=== PATIENT | male | born 1970 | race Caucasian/White ===

== ENCOUNTER → 2017-10-08 20:29 | Outpatient (CLI) | payer MEDICAID, SELFPAY | PROVIDERS: Family Provider Family Medicine; PCP Family Medicine; Visit Provider Family Medicine | DX: G47.33 Obstructive sleep apnea (adult) (pediatric) (principal) | CPT/HCPCS: 95810 ==

== ENCOUNTER → 2018-07-19 09:54 | Outpatient (CLI) | payer MEDICAID, SELFPAY ==
--- NOTE | 2018-07-19 09:55 | RAD_ITS ---
STUDY: X-RAY - LEFT KNEE REASON FOR EXAM: Male, 47 years old. Pain TECHNIQUE: 4 view(s) of the knee. COMPARISON: None. FINDINGS: There is no evidence of fracture or dislocation. There are no significant degenerative changes. There are no radiodense foreign bodies. RAD/Knee 4 or More Views IMPRESSION: Negative radiographs of the left knee. Electronically Signed: Javier Farah, at 17:01 EST Tel , Service support ,
--- OUTSIDE RECORDS SUMMARY | 2018-09-20 19:57 | XMS RPT_ITS ---
:1970 Author Organization OHIP Care Team Providers Name Role Phone NAVI PONCE Referring Unavailable TALITA COFFEY Attending Unavailable TYE JUAREZ (METAL FABRICATOR) Referring Unavailable NAVI PONCE Attending Unavailable NAVI PONCE Referring Unavailable Erickson Langford Attending Unavailable Navi Ponce Referring Unavailable Erickson Langford Attending Unavailable Erickson Langford Referring Unavailable Navi Ponce Primary Care Unavailable Navi Ponce Attending Unavailable Navi Ponce Primary Care Unavailable PROBLEMS PROBLEMS DATE TYPE CONDITION / CODE ATTENDING STATUS SOURCE 07/19/2018 Unknown M25.562 - Pain in Erickson Langford Active [facility] left knee / Community M25.562(ICD-10) Hospital Repository 04/10/2018 Active Encounter for NA Active [facility] immunization / [place] Z23(ICD-10) Repository 11/18/2017 Active Unknown / TALITA COFFEY Active [facility] UNK(Unknown) [place] Repository 10/08/2017 Unknown G47.33 - Abraham Ponce Obstructive sleep [facility] apnea (adult) Hospital (pediatric) / Repository G47.33(ICD-10) 09/22/2017 Active Encounter for NA Active [facility] general adult [facility] [place] medical Repository examination without abnormal findings / Z00.00(ICD-10) PROCEDURES PROCEDURES No Procedure Records FoundRESULTS RESULTS ORTHOPEDIC VISIT Observed: 07/19/2018 Status: F Source: [place] REPORT 11:30 AM [facility] [place] REPOSITORY [facility] [address] [place] [id number] OFFICE VISIT Date of Service: 07/19/18 MR#: [id number] Acct: [id number] Name: VICENTE YOUNG Rep #: [id number] : 1970 Provider: LIZA Langford Age/Sex: 47/M Location: [facility] [place].SMO Status: Signed Intake Intake Visit Reasons: LEFT KNEE Is patient in pain?: Yes Pain scale (1-10): 5 Allergies No Known Allergies Allergy (Verified 04/22/14 09:38) Medications Oxycodone HCl/Acetaminophen [Percocet 5/325] 1 - 2 tab PO Q4H PRN PRN #20 tab 04/22/14 [Rx] meloxicam 15 mg tablet 15 mg PO DAILY #30 tab 07/19/18 [Rx Confirmed 07/19/18] PFSH Social History Smoking Status: Never smoker HPI LEFT KNEE: Details: VICENTE YOUNG is a 47 year old M here today for left knee pain. He complains of constant aching with sharp pain in the lateral aspect of the knee, increased pain with extension. He also complains of locking and stuck sensation in flexed position. He gets some relief with nsaids but denies any icing. Dr Haji gave him a brace but he does not find it useful. Voltaren gel has been helpful but he continues to have an antalgic gait that is worsening. Dr Haji did a steroid injection that was very helpful. Denies numbness, tingling or other associated symptoms. Ortho Exam Left Knee Swelling: No Homans Sign: No Knee ROM: Yes ROM-Extension -20 to 0, Yes ROM-Flexion 0-140 Examination: Yes med jt line tenderness, Yes Lat jt line tenderness, No Flaca's Test, No Pain with flexion, No TTP inf pole patella, No Crepitus Quad Atrophy: No Stability: NML: Anterior Drawer, NML: Posterior Drawer, NML: Valgus 30, NML: Varus 30 Popliteal Adenopathy: No Patella Grind: No KNEE: Today in the office patient has no evident abnormalities on inspection of the knee. He has no localized or generalized swelling. He has no ecchymosis/bruising, erythema, or any other skin changes at this time. He has normal full range of motion comparable to the right knee as well as normal 5 out of 5 strength comparable to the right knee. As noted above he has some minor lateral and medial joint line tenderness at the same time no findings suggestive of meniscus damage with a negative Flaca's and a negative modified Apley's. Patient appears to have normal ACL, PCL, and collateral ligaments without any laxity or discomfort on maneuvers. Office Procedures Kenalog 40 mg/mL suspension for injection (triamcinolone acetonide) 80 mg Intra-Articular ONCE Injections Yes Knee Left Office Meds Kenalog Performing Provider: LIZA Mo Administered by: LIZA Mo on 07/19/18 10:51 Dose Route Admin Location Lot Number Expiration DateNDC Supervisor [employer] 80 mg Intra-Articularleft knee [id number] 08/28/19 8180-5007-78 [employer]QUIB[employer] Assessment AND Plan Plan Obtained Xrays of patient's left knee. Personally reviewed Xrays. There is no obvious fracture, dislocation, or lucency noted. There is some minor medial compartment narrowing noted. See chart for further details. Today in the office patient presents with left knee pain that he has had on and off for a few years now. Patient had a shot about 2 years ago and states that it worked for quite a period of time. He is definitely has had worsening pain in the past several months and should have come in sooner he states but is just now here. We did go over his x-rays showing mild medial compartment narrowing. He does not have any evidence on examination of major meniscus tears and did not have an acute injury to point to this either. At this time we discussed treatment options which include doing nothing, conservative care with ice and anti-inflammatories, injections, physical therapy, and/or further imaging with MRI. At this time patient states he has been able to work with some discomfort and would like to continue to do so. We discussed and I do not feel that at this time an MRI is warranted. I would deafly recommend that he begin a home exercise program to strengthen the quadriceps and hamstrings as well as the calf. Patient states that he will try to do some things to strengthen the legs. At this time he would like to have an injection into the knee for some pain relief. We discussed that if this does not last for long period of time then we will have him return and proceed with an MRI of the left knee to look for any other underlying damage. The injection was discussed and all of his questions regarding the injection were answered (patient has had previous injections without any problems) and consent was signed today. Injection was given under normal sterile fashion using a supero-lateral approach with knee in extension. Patient tolerated procedure just fine without any complaints. He is to monitor notify of any increasing pain, increased swelling, erythema, or any signs of infection. I would like him to ice and take an anti-inflammatory for the next 2-3 days. All questions were answered to their satisfaction at this time. We will see patient on as-needed basis or if he has no relief with injection. This note was generated with [employer] dictation software. It may contain incorrect words, spelling, and punctuation that were not noted in checking the note before signing. Orders Orders: Medications New: Discontinued: Kenalog (triamcinolone acetonide) Disco80 mg (2 mL) Intra- Articular ONCE 2 mL 0RFM17.12 ntinued Reason: Office Medication has bee NS n Documented as given Coding Level of Care Code Off vis,est,level 3 Additional Codes biological science technician.knee ([id number]) 07/19/18 1130 <Electronically signed by Erickson DE JESUS> Date Erickson DE JESUS Cosigner Signature: Date (if applicable) CC: KNEE 4 OR MORE Observed: 07/19/2018 Status: F Source: ARELY MARISCAL 9:55 AM [facility] [place] REPOSITORY [facility] Imaging Services [address] [place] [address] Knee 4 or More Views MR#: [id number] Acct: [id number] Name: VICENTE YOUNG Rep #: [id number] : 1970 M 47 From: Javier Farah MD PCP: Navi Ponce MD Status: REG CLI Study: Knee 4 or More Views Date of Exam: 07/19/18 Exam# [id number] Ordering Dr: Erickson Langford STUDY: X-RAY - LEFT KNEE REASON FOR EXAM: Male, 47 years old. Pain TECHNIQUE: 4 view(s) of the knee. COMPARISON: None. FINDINGS: There is no evidence of fracture or dislocation. There are no significant degenerative changes. There are no radiodense foreign bodies. RAD/Knee 4 or More Views IMPRESSION: Negative radiographs of the left knee. Electronically Signed: Javier Sofi, at 17:01 EST Tel , Service support , CC: LIZA Langford; Navi Ponce MD [employer] Stillman: Signed CNNURSE Observed: 04/10/2018 Status: COMPLETED Source: [place] 10:50 AM [facility] [place] REPOSITORY Nurse Visit (CORWST) VICENTE YOUNG ([id number]) 1970 M Date Time Provider Department 04/10/18 10:50 AM [facility] During your visit today, we recorded the following information about you: April Brandt LPN 04/10/2018 10:31 AM Signed 47 year old male here for INACTIVATED INFLUENZA VACCINE. 1031-5201 Season Patient is identified by name and date of : Yes [] CONTRAINDICATIONS color enhanced section Age less than 6 months? No Allergy to eggs, chicken, chicken feathers, or chicken dander? No Allergy to thimerosal (a preservative) or formaldehyde, gelatin? No History of severe reaction to any vaccine component or a previous dose of influenza vaccination? No History of Guillain-Marshall Syndrome within 6 weeks after a previous influenza vaccine? No Patient is not moderately or severely ill? No Current temperature greater or equal to 100.4F? No History of Bone Marrow Transplant prior 6 months or solid organ transplant in the past 3 months ? No History of fainting after a prior injection or medical procedure? No- ? If patient has fainted in the past, the CDC recommends sitting or lying down for 15 minutes after the vaccination. [] VERIFICATION color enhanced section Was the answer Yes for any of the above contraindications? No contraindications present. Acceptable to proceed with vaccine. Patient/guardian agrees the above answers are true to the best of their knowledge? Yes Flu vaccine information sheet given? Yes See immunization activity in [facility] for details of immunizations adminstered today. Patient age: [age] year old For The 3151-4196 Flu Season 6-35 months old: Fluzone 0.25 ml - IM (Preservative Free) 3 years of age: Fluzone 0.5 ml - IM (Preservative Free) 3 years and older: Fluzone 0.5 ml- IM-(with Preservatives) 65+ years old: 2-49 years old Fluzone High-Dose 0.5 ml - IM (Preservative Free) FLUMIST- intranasal REMEMBER: If patient is less than 9 years of age and this is the first vaccine of Influenza to be received in any flu season, they should receive a second dose in one months time. Referring Provider: NAVI PONCE [[id number]] Allergies As of Date: 04/10/2018 (No Known Allergies) Date Reviewed: 01/14/2018 Reviewed by: Oumou Angel - Fully Assessed Reason for Visit: Imm/Inj [58] Cmt: Flu Vaccine Primary Visit Diagnosis:Need for vaccination [Z23] Order(s):INFLUENZA VACCINE QUADRIVALENT AGE 3 YRS PLUS + IM [48278KDR] Order #: [id number] Problem List As Of Date 04/10/2018 Noted Resolved SPRAIN OF ANKLE NOS [S93.409A] INVALID FOR* RDAHA (obstructive sleep apnea) [G47.33] INVALID FOR* Pharyngoesophageal dysphagia [R13.14] INVALID FOR* Encounter Status:Closed by APRIL BRANDT LPN on 04/10/18 PROGRESS Observed: 04/07/2018 Status: COMPLETED Source: [place] 11:12 AM [facility] REPOSITORY HNO ID: [id number] Author: April Brandt LPN Service: (none) Author Type: (none) Type: Progress Notes Filed: 04/10/2018 10:31 AM Note Text: 47 year old male here for INACTIVATED INFLUENZA VACCINE. 5902-5175 Season Patient is identified by name and date of : Yes [] CONTRAINDICATIONS color enhanced section Age less than 6 months? No Allergy to eggs, chicken, chicken feathers, or chicken dander? No Allergy to thimerosal (a preservative) or formaldehyde, gelatin? No History of severe reaction to any vaccine component or a previous dose of influenza vaccination? No History of Guillain-Marshall Syndrome within 6 weeks after a previous influenza vaccine? No Patient is not moderately or severely ill? No Current temperature greater or equal to 100.4F? No History of Bone Marrow Transplant prior 6 months or solid organ transplant in the past 3 months ? No History of fainting after a prior injection or medical procedure? No- ? If patient has fainted in the past, the CDC recommends sitting or lying down for 15 minutes after the vaccination. [] VERIFICATION color enhanced section Was the answer Yes for any of the above contraindications? No contraindications present. Acceptable to proceed with vaccine. Patient/guardian agrees the above answers are true to the best of their knowledge? Yes Flu vaccine information sheet given? Yes See immunization activity in [facility] for details of immunizations adminstered today. Patient age: [age] year old For The 0857-1783 Flu Season 6-35 months old: Fluzone 0.25 ml - IM (Preservative Free) 3 years of age: Fluzone 0.5 ml - IM (Preservative Free) 3 years and older: Fluzone 0.5 ml- IM-(with Preservatives) 65+ years old: 2-49 years old Fluzone High-Dose 0.5 ml - IM (Preservative Free) FLUMIST- intranasal REMEMBER: If patient is less than 9 years of age and this is the first vaccine of Influenza to be received in any flu season, they should receive a second dose in one months time. PROGRESS Observed: 01/27/2018 Status: COMPLETED Source: [place] 4:51 PM [facility] REPOSITORY HNO ID: [id number] Author: Arlene Medeiros LPN Service: (none) Author Type: (none) Type: Progress Notes Filed: 01/27/2018 4:51 PM Note Text: patient no showed to 01/14 follow up appointment. PROGRESS Observed: 11/18/2017 Status: COMPLETED Source: [place] 1:10 PM [facility] REPOSITORY HNO ID: [id number] Author: Arlene Medeiros LPN Service: (none) Author Type: (none) Type: Progress Notes Filed: 11/18/2017 1:11 PM Note Text: consult faxed to Dr Saldivar office today. Pt will be calling our office to schedule follow up after ENT visit. PROGRESS Observed: 11/18/2017 Status: COMPLETED Source: [place] 11:14 AM [facility] REPOSITORY HNO ID: [id number] Author: Talita Coffey Service: (none) Author Type: Physician Type: Progress Notes Filed: 11/18/2017 11:59 AM Note Text: [facility] New Patient Evaluation Vicente Young was evaluated at the [place] location on November 18, 2017 Time out: 12:00 Time in: 11:15 For this visit, a total ydxb-yj-axyp time with the patient comprised yes minutes, with at least 50% of that time devoted to vsmj-aw-vvqu counseling and coordination of care, with especial emphasis placed on answering the patient?s and/or family?s questions in a form that they can understand and appreciate. PATIENT NAME: Vicente Young DATE OF SERVICE: November 18, 2017 Insurance: [facility] Home Location: [place] CONSULTING PROVIDER: Tye Juarez APRN.METAL FABRICATOR [address] [facility] [place] [address] REASON FOR CONSULT: Tye (Jonas) Salvador sends the patient for an opinion about treating RADHA. My findings and recommendations will be transmitted electronically via shared medical record to the consulting provider. Relevant Medications, allergies, hx Reviewed: yes HPI: Vicente Young is a 47 year old male. Sleep-related history: pt has snored for many years, but recently noted him stopping in breathing. This lead to him getting a sleep study, when RADHA was found. Other relevant history includes Diffifulty at times with swallowing, gets to choking after swallowing, cause undetermined. Mild obesity SLEEP-WAKE SCHEDULE Bedtime: from 10 to 11 Activities before going to bed: phone Reading, TV, Computer in bed? na Sleep Latency: not long Wake After Sleep Onset: thorugh ok, but concerned Wake time: 5 without an alarm. Time Out of Bed: same Can Nap if wants to: yes He does not take naps. On weekends, he maintains the same sleep schedule. Average total sleep time (in a 24 hour period): 5-6 hours. 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 Problems with: Memory : no concentration. no Irritability: no Fatigue: no Demoralization: no Role Impairment: no He denies falling asleep or dozing off when driving. Substance Use/Diet: Caffeine: Some teac Tobacco: no Alcohol: no Vegetarian no Marijuana, Street Drugs: no There has not been a recent change in weight. HYPERSOMNIA: Self-reported daytime sleepiness has not been a problem. There is no history of a viral illness or significant head injury prior to the start of daytime sleepiness. Cataplexy: na Hypnagogic hallucinations: no Dream enactment behaviors: no Sleep related injuries: no SLEEP DISORDER SYMPTOMS He does not report having an urge to move the legs in the evening (when resting) that is accompanied or caused by uncomfortable and/or unpleasant sensations in the legs. He has been told that he has leg kicking during sleep. The patient reports about: Itching affecting sleep: no Sleep paralysis: no Sleep talking or walking: no Nightmares: Frequency: no Night terrors. Frequency: no Eating at night: no Bed Wetting: Frequency: no OTHER SLEEP BEHAVIORS/COMPLAINTS: Pain at night: no Racing thoughts or rumination: no Morning Headache: no Bruxism: yes Waking up with heart pounding or racing: no Nocturnal GERD or aspiration: no Nocturia no PAST TREATMENTS: none PRIOR SLEEP STUDIES: A Polysomnogram performed on 10/14/17 revealed an AHI of 38; At a [facility]. study. OTHER RELEVANT LABS AND STUDIES: Bicarb: 28 BMI 35 A1c: na Vit D: na Ferritin na TSH: na Imaging na Ejection fraction na PAST MEDICAL HISTORY Diagnosis Date - PMH - PAST MEDICAL HISTORY OF 04/2007 Fracture right fibula PAST SURGICAL HISTORY Procedure Laterality Date - APPENDECTOMY ACTIVE PROBLEM LIST Sprain of Ankle, Unspecified Site Allergies As of Date: 11/18/2017 (No Known Allergies) Fully Assessed 09/18/2017 CURRENT MEDICATIONS: No prescriptions on file. REVIEW OF SYSTEMS Sleep related General - See HPI. HEENT Eye Problems (eg. Cataracts, glaucoma) no Septal Deviation no Nasal Congestion no Post-Nasal Drip no Mouth Breathing no Morning dry mouth/throat: sometimes RESPIRATORY Nocturnal dyspnea no Dyspnea on exertion no Wheezing no Nocturnal cough no CARDIOVASCULAR Heart failure no Atrial Fibrillation no Orthopnea no Heart Palpitations no Chest Discomfort no Hypertension no GASTROINTESTINAL Stomach pain during sleep no Blood In Stool no GENITOURINARY Renal Insufficiency no Menstrual pattern na Hot Flashes na MUSCULOSKELETAL Hx of back or neck surgery: no Joint discomfort knees ache SKIN Rash no ENDOCRINE Diabetes no Thyroid no Steroids of any kind (inc BCPs) no NEUROLOGICAL Headaches no Any Seizure Hx no PSYCHIATRIC Recent stressors no Hx of psychiatric hospitalization no Hx of [place] of any kind no Prior Psychiatric Hx: no Substance abuse Hx no PTSD exposure no Current employment status: employed FAMILY HISTORY FAMILY HISTORY Problem Relation Age of Onset - Cancer Father 65 Prostate - Cancer Mother Basal cell face - Arthritis Mother Rheumatoid - Arthritis Father Osteoarthritis, knee replacements There is a family history of: Sleep apnea. Relative: parents and brother. Sleep disorders when a child/adolescent: no PHYSICAL EXAMINATION: Constitutional/ General appearance: Husky obese MENTAL STATUS Grooming good Orientation: Ox3 Memory: Grossly intact Kinetics: normal Eye Contact: good Speech: Articulate yes Level normal Rate normal Syntax standared Thought Stream logic, terse Thought Content about getting workup, working with Mood: euth Affect: eutn Suicidal Ideation: no Homocidal Ideation: No Psychosis no Insight good Judgment good. Skin: Normal Eyes: PERRLA, EOMI without Nystagmus, ENT : Nasal congestion absent, Septal Deviation: no Nasal valve incompetence absent. Posterior airspace: Very good Langford tongue position 2, retrognathia absent. Overjet: 0 mm. Overbite absent. High arched palate present. Tongue scalloping/ridging absent. Uvula: normal Neck circumference: 44 cm. thyromegaly or adenopathy absent. Chest: Regular S1 and S2, no Murmurs, Lungs clear to auscultation in posterior alaniz. Abdomen: Mildly obese Extremities: Pretibial edema no, Clubbing no Neuro: Gait and station normal, Strength grossly normal in all extremities. Coordination grossly intact. No tremors noted. Actions taken: Motivational Interviewing aspects taken Explaining out the treatmen OARRS Aspect: na Explaining out the disease and treatments Per pt preference consult to ENT. IMPRESSION/PLAN Regarding Sleep Disorder Diagnoses: Obstructive Sleep Apnea Other Diagnoses conditioning the treatment plan: Obesity Swallowing difficulty. Case Formulation / [place] (may include pt's hopes, fears, expectations, concerns): Pt is reluctant to use something on his face. Follow up in about a month, P[place] > Jeanne. . Talita Coffey MD Beeper: [id number] CNOV Observed: 11/18/2017 Status: COMPLETED Source: [place] 10:40 AM [facility] REPOSITORY Office Visit (NEMOWS) VICENTE YOUNG ([id number]) 1970 M Date Time Provider Department 11/18/17 10:40 AM TALITA COFFEY During your visit today, we recorded the following information about you: Pulse Respiration Blood pressure Weight 87/minute 16/minute 136/94 108.9 kg Talita Coffey MD 11/18/2017 11:59 AM Signed [facility] New Patient Evaluation Vicente Young was evaluated at the [place] location on November 18, 2017 Time out: 12:00 Time in: 11:15 For this visit, a total dhxp-tw-zbdh time with the patient comprised yes minutes, with at least 50% of that time devoted to xgjb-kz-qzga counseling and coordination of care, with especial emphasis placed on answering the patient?s and/or family?s questions in a form that they can understand and appreciate. PATIENT NAME: Vicente Young DATE OF SERVICE: November 18, 2017 Insurance: [employer] Home Location: [place] CONSULTING PROVIDER: Tye Juarez APRN.METAL FABRICATOR [address] [facility] [address] REASON FOR CONSULT: Tye (Jonas) Salvador sends the patient for an opinion about treating RADHA. My findings and recommendations will be transmitted electronically via shared medical record to the consulting provider. Relevant Medications, allergies, hx Reviewed: yes HPI: Vicente Young is a 47 year old male. Sleep-related history: pt has snored for many years, but recently noted him stopping in breathing. This lead to him getting a sleep study, when RADHA was found. Other relevant history includes Diffifulty at times with swallowing, gets to choking after swallowing, cause undetermined. Mild obesity SLEEP-WAKE SCHEDULE Bedtime: from 10 to 11 Activities before going to bed: phone Reading, TV, Computer in bed? na Sleep Latency: not long Wake After Sleep Onset: thorugh ok, but concerned Wake time: 5 without an alarm. Time Out of Bed: same Can Nap if wants to: yes He does not take naps. On weekends, he maintains the same sleep schedule. Average total sleep time (in a 24 hour period): 5-6 hours. 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 Problems with: Memory : no concentration. no Irritability: no Fatigue: no Demoralization: no Role Impairment: no He denies falling asleep or dozing off when driving. Substance Use/Diet: Caffeine: Some teac Tobacco: no Alcohol: no Vegetarian no Marijuana, Street Drugs: no There has not been a recent change in weight. HYPERSOMNIA: Self-reported daytime sleepiness has not been a problem. There is no history of a viral illness or significant head injury prior to the start of daytime sleepiness. Cataplexy: na Hypnagogic hallucinations: no Dream enactment behaviors: no Sleep related injuries: no SLEEP DISORDER SYMPTOMS He does not report having an urge to move the legs in the evening (when resting) that is accompanied or caused by uncomfortable and/or unpleasant sensations in the legs. He has been told that he has leg kicking during sleep. The patient reports about: Itching affecting sleep: no Sleep paralysis: no Sleep talking or walking: no Nightmares: Frequency: no Night terrors. Frequency: no Eating at night: no Bed Wetting: Frequency: no OTHER SLEEP BEHAVIORS/COMPLAINTS: Pain at night: no Racing thoughts or rumination: no Morning Headache: no Bruxism: yes Waking up with heart pounding or racing: no Nocturnal GERD or aspiration: no Nocturia no PAST TREATMENTS: none PRIOR SLEEP STUDIES: A Polysomnogram performed on 10/14/17 revealed an AHI of 38; At a [facility]. study. OTHER RELEVANT LABS AND STUDIES: Bicarb: 28 BMI 35 A1c: na Vit D: na Ferritin na TSH: na Imaging na Ejection fraction na PAST MEDICAL HISTORY Diagnosis Date - PMH - PAST MEDICAL HISTORY OF 04/2007 Fracture right fibula PAST SURGICAL HISTORY Procedure Laterality Date - APPENDECTOMY ACTIVE PROBLEM LIST Sprain of Ankle, Unspecified Site Allergies As of Date: 11/18/2017 (No Known Allergies) Fully Assessed 09/18/2017 CURRENT MEDICATIONS: No prescriptions on file. REVIEW OF SYSTEMS Sleep related General - See HPI. HEENT Eye Problems (eg. Cataracts, glaucoma) no Septal Deviation no Nasal Congestion no Post-Nasal Drip no Mouth Breathing no Morning dry mouth/throat: sometimes RESPIRATORY Nocturnal dyspnea no Dyspnea on exertion no Wheezing no Nocturnal cough no CARDIOVASCULAR Heart failure no Atrial Fibrillation no Orthopnea no Heart Palpitations no Chest Discomfort no Hypertension no GASTROINTESTINAL Stomach pain during sleep no Blood In Stool no GENITOURINARY Renal Insufficiency no Menstrual pattern na Hot Flashes na MUSCULOSKELETAL Hx of back or neck surgery: no Joint discomfort knees ache SKIN Rash no ENDOCRINE Diabetes no Thyroid no Steroids of any kind (inc BCPs) no NEUROLOGICAL Headaches no Any Seizure Hx no PSYCHIATRIC Recent stressors no Hx of psychiatric hospitalization no Hx of [place] of any kind no Prior Psychiatric Hx: no Substance abuse Hx no PTSD exposure no Current employment status: employed FAMILY HISTORY FAMILY HISTORY Problem Relation Age of Onset - Cancer Father 65 Prostate - Cancer Mother Basal cell face - Arthritis Mother Rheumatoid - Arthritis Father Osteoarthritis, knee replacements There is a family history of: Sleep apnea. Relative: parents and brother. Sleep disorders when a child/adolescent: no PHYSICAL EXAMINATION: Constitutional/ General appearance: Husky obese MENTAL STATUS Grooming good Orientation: Ox3 Memory: Grossly intact Kinetics: normal Eye Contact: good Speech: Articulate yes Level normal Rate normal Syntax standared Thought Stream logic, terse Thought Content about getting workup, working with Mood: euth Affect: eutn Suicidal Ideation: no Homocidal Ideation: No Psychosis no Insight good Judgment good. Skin: Normal Eyes: PERRLA, EOMI without Nystagmus, ENT : Nasal congestion absent, Septal Deviation: no Nasal valve incompetence absent. Posterior airspace: Very good Langford tongue position 2, retrognathia absent. Overjet: 0 mm. Overbite absent. High arched palate present. Tongue scalloping/ridging absent. Uvula: normal Neck circumference: 44 cm. thyromegaly or adenopathy absent. Chest: Regular S1 and S2, no Murmurs, Lungs clear to auscultation in posterior alaniz. Abdomen: Mildly obese Extremities: Pretibial edema no, Clubbing no Neuro: Gait and station normal, Strength grossly normal in all extremities. Coordination grossly intact. No tremors noted. Actions taken: Motivational Interviewing aspects taken Explaining out the treatmen OARRS Aspect: na Explaining out the disease and treatments Per pt preference consult to ENT. IMPRESSION/PLAN Regarding Sleep Disorder Diagnoses: Obstructive Sleep Apnea Other Diagnoses conditioning the treatment plan: Obesity Swallowing difficulty. Case Formulation / [place] (may include pt's hopes, fears, expectations, concerns): Pt is reluctant to use something on his face. Follow up in about a month, P[place] > Jeanne. . Talita Coffey MD Beeper: [id number] Referring Provider: TYE JUAREZ ([facility]) [[id number]] Allergies As of Date: 11/18/2017 (No Known Allergies) Date Reviewed: 09/18/2017 Reviewed by: Stephanie Smith LPN - Fully Assessed Visit Diagnoses:RADHA (obstructive sleep apnea) [G47.33] Pharyngoesophageal dysphagia [R13.14] Order(s):CONSULT TO ENT [9008] Order #: [id number]: 1 Problem List As Of Date 11/18/2017 Noted Resolved SPRAIN OF ANKLE NOS [S93.409A] INVALID FOR* RADHA (obstructive sleep apnea) [G47.33] INVALID FOR* Pharyngoesophageal dysphagia [R13.14] INVALID FOR* Disposition: Return in about 4 weeks (around 12/16/2017). Follow-up and Disposition History Recorded Encounter Status:Closed by MD TALITA COFFEY [facility]18/[facility] 10/16/2017 Status: COMPLETED Source: [place] 12:00 AM [facility] VICENTE YOUNG ([id number]) 1970 M Date Time Provider Department 10/16/17 TYE JUAREZ ([facility]) [facility] During your visit today, we recorded the following information about you: Tye Juarez APRN.JONAS 10/16/2017 9:08 AM Signed Personally called patient to discuss sleep study results. His did take his message. His sleep study at [facility] showed severe RADHA. Discussed this finding and the need for CPAP titration with the . The interpreting physician, Dr. Langford, also recommended abstaining from driving and operating machinery until it is corrected and that he should avoid sedative agents and alcohol. 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 She also stated that he was not looking forward to coming into the office today to get these results and that they would like to cancel the appointment today. I did offer to keep the appointment for any other health care needs, which she declined and thanked me for saving them an unneeded appointment. I advised her that [facility] would be reaching out to the patient to set up the CPAP titration study so that we can send a CPAP or autopap prescription with the right settings to [facility]. Can we please; 1. Cancel his 9:40 appointment today and 2. Send the CPAP titration order to [facility]. EYAL Butt, RN, RN 10/16/2017 9:43 AM Signed [facility] OR called and they received sleep disorder fax not sure it was meant for them? is the OR. Tye Juarez APRN.CNP 10/16/2017 9:46 AM Signed Can we call sleep lab to see what their fax number is? EYAL Butt Cma 10/16/2017 9:51 AM Signed This was the number i had for sleep disorder at [facility] - I have re faxed it to [phone] - if this is not correct number please ask for correct number as these are the only two numbers I have Effie Greco [facility] Tye Juarez APRN.CNP 10/16/2017 10:04 AM Signed Patient came to office to tell me that he does not wish to use CPAP and would like other options. Discussed that he does have severe sleep apnea that should be treated. Given that he does not wish to use CPAP, I have recommended a consult to sleep medicine for further evaluation, treatment options. EYAL Butt APRN.CNP 10/16/2017 10:04 AM Signed Addended by: TYE JUAREZ CNP on: 10/16/2017 10:04 AM Modules accepted: Orders Allergies As of Date: 10/16/2017 (No Known Allergies) Date Reviewed: 09/18/2017 Reviewed by: Stephanie Smith LPN - Fully Assessed Reason for Visit: Results [95] Primary Visit Diagnosis:RADHA (obstructive sleep apnea) [G47.33] Order(s):PAP TITRATION PSG (CPAP, BIPAP, ASV) [7346379] Order #: [id number] FUTURE CONSULT TO SLEEP MEDICINE - ADULT [[id number]] Order #: [id number]: 1 Problem List As Of Date 10/16/2017 Noted Resolved SPRAIN OF ANKLE NOS [S93.409A] INVALID FOR* Encounter Status:Closed by EFFIE GRECO CMA on 10/16/17 COMP METABOLIC PANEL Collected: 09/22/2017 Status: F Source: [place] 10:07 AM [facility] [place] REPOSITORY TYPE CODE TESTS RESULT OUT OF REFERENCE UNITS RANGE LAB TP 6.3-8.0 g/dL Protein, Total 7.4 LAB ALB 3.9-4.9 g/dL Albumin 4.5 LAB CA 8.5-10.2 mg/dL Calcium, Total 9.7 LAB TBIL 0.2-1.3 mg/dL Bilirubin, Total 0.9 LAB ALKP 36-108 U/L Alkaline Phosphatase 64 LAB AST 14-40 U/L AST 23 LAB GLU 74-99 mg/dL Glucose 98 Result Comment: The [place] Diabetes Association (ADA) provides guidance for cutoff values for fasting glucose and random glucose. The ADA defines fasting as no caloric intake for at least 8 hours. Fas ting plasma glucose results between 100 to 125 mg/dL indicate increased risk for diabetes (prediabetes). Fasting plasma glucose results greater than or equal to 126 mg/dL meet the criteria for diagnosis of diabetes. In the absence of unequivocal hyperglycemia, results should be confirmed by repeat testing. In a patient with classic symptoms of hyperglycemia or hyperglycemic crisis, random plasma glucose results greater than or equal to 200 mg/dL meet the criteria for diagnosis of diabetes. Reference: Standards of Medical Care in Diabetes 2016, [place] Diabetes Association. Diabetes Care. 2016.39(Suppl 1). LAB BUN 9-24 mg/dL BUN 17 LAB CRET 0.73-1.22 mg/dL Creatinine 0.96 LAB NA 136-144 mmol/L Sodium 137 LAB K 3.7-5.1 mmol/L Potassium 4.3 LAB CL 97-105 mmol/L Chloride 100 LAB CO2 22-30 mmol/L CO2 28 LAB AGAP 9-18 mmol/L Anion Gap 9 LAB ALT 10-54 U/L ALT 27 LAB GFRAA eGFR- Amer. >60 LAB GFRNAA . eGFR-All Other Races >60 Result Comment: eGFR (Estimated GFR) Units of measure: mL/min/1.73 meters squared eGFR is derived from the reexpressed MDRD Study equation using the following parameters: serum creatinine, age, gender and race. The creatinine assay has been calibrated to be traceable to IDMS. An eGFR <60 mL/min/1.73m2 for >3 months is consistent with chronic kidney disease. Refer to KDOQI guidelines for clinical interpretation. In patients with unstable renal function, e.g. those with acute kidney injury, the eGFR may not accurately reflect actual GFR. Performed By: #### CMP, LIPB #### [facility] [address] [place], [place] [address] LIPID PANEL, BASIC Collected: 09/22/2017 Status: F Source: [place] 10:07 AM [facility] REPOSITORY TYPE CODE TESTS RESULT OUT OF REFERENCE UNITS RANGE LAB CHOL <200 mg/dL Cholesterol 147 Result Comment: <200 mg/dL, Desirable 200-239 mg/dL, Borderline high >239 mg/dL, High LAB TRIGLY <150 mg/dL Triglyceride High 231 Result Comment: <150 mg/dL, Normal 150-199 mg/dL, Borderline high 200-499 mg/dL, High >499 mg/dL, Very high LAB HDL >39 mg/dL HDL-Cholesterol Low 27 Result Comment: 40-59 mg/dL, Acceptable >59 mg/dL, High: Negative risk factor for coronary heart disease <40 mg/dL, Low: Positive risk factor for coronary heart disease LAB LDL <100 mg/dL LDL-Cholesterol 74 Result Comment: <100 mg/dL, Optimal 100-129 mg/dL, Near optimal/above optimal 130-159 mg/dL, Borderline high 160-189 mg/dL, High >189 mg/dL, Very high Secondary prevention optimal LDL Cholesterol levels are recommended to be < 70 mg/dL LAB NONHDL <130 mg/dL Non HDL Cholesterol 120 Result Comment: <130 mg/dL, Optimal 130-159 mg/dL, Near optimal/above optimal 160-189 mg/dL, Borderline high 190-219 mg/dL, High >219 mg/dL, Very high Secondary prevention optimal non HDL Cholesterol levels are recommended to be < 100 mg/dL LAB FT hrs Fasting Time 12 LAB VLDL <30 mg/dL High VLDL Cholesterol 46 LAB TCHDL <5.10 High TC:HDL Ratio 5.44 LAB LDLHDL <2.54 High LDL:HDL Ratio 2.74 Result Comment: Reference: 1. National Cholesterol Education Program ATP III Guideline At-A-Glance Quick Desk Reference: National Heart, Lung, and Blood [place]. National Institutes of Health. 2001: NIH Publication No. 01-3305. 2. An International Atherosclerosis Society position paper: global recommendations for the management of dyslipidemia: executive summary, Atherosclerosis. 2014: 232(2):410-413. Performed By: #### CMP, LIPB #### [facility] [address] [place] [id number] PROGRESS Observed: 09/18/2017 Status: COMPLETED Source: [place] 11:43 AM [facility] REPOSITORY HNO ID: [id number] Author: Navi Ponce Service: (none) Author Type: Physician Type: Progress Notes Filed: 09/18/2017 1:56 PM Note Text: Chief Complaint Patient presents with: Physical HPI Vicente Young is a 47 year old male who presents here today for physical. Brought in by his for routine check. Concerned about lipids, weight; TG elevated on last labs in 2012. Sleep apnea; reports heavy snoring, observed apnea, daytime sleepiness, obesity with BMI 35. Reports occ choking with eating, happens about once/week; will cough and sneeze. He thinks it happens if he eats too fast. Remains active in farming. Past medical history, appointments, medications, allergies reviewed. Previous Medical History PAST MEDICAL HISTORY Diagnosis Date - PMH - PAST MEDICAL HISTORY OF 04/2007 Fracture right fibula Previous Surgical History PAST SURGICAL HISTORY Procedure Laterality Date - APPENDECTOMY 1990s Family History FAMILY HISTORY Problem Relation Age of Onset - Cancer Father 65 Prostate - Cancer Mother Basal cell face - Arthritis Mother Rheumatoid - Arthritis Father Osteoarthritis, knee replacements Patient Allergies ALLERGIES No Known Allergies Current Medications No current outpatient prescriptions on file prior to visit. No current facility-administered medications on file prior to visit. Social History Social History Marital status: Single Spouse name: Years of education: Number of children: Social History Main Topics Smoking status: Never Smoker Smokeless status: Never Used Alcohol use: No Drug use: No EXAM: BP 136/82 (BP Site: Right Arm, BP Position: Sitting, BP Cuff Size: Regular Adult) Pulse 84 Resp 16 Ht 176.5 cm (5' 9.5) Wt 109.8 kg (242 lb) BMI 35.22 kg/m2 General Appearance: Well appearing, alert, in no acute distress, well-hydrated, well nourished., Obese. Oropharynx: Lips, mucosa, and tongue normal, teeth and gums normal, oropharynx normal. Neck: Supple, no adenopathy; thyroid symmetric, normal size, no bruits. Lungs: Lungs clear to auscultation. No wheezing, rhonchi, rales. Heart: RRR without murmur, gallop, or rubs. No ectopy. Abdomen: Normal abdominal exam, Abdomen soft, non-tender. Bowel sounds normal. No masses, organomegaly. Health Maintenance List DIABETES SCREEN due on 11/17/2015 INFLUENZA(1) due on 02/27/2017 LIPID SCREEN due on 11/16/2017 TETANUS due on 11/16/2022 Data reviewed None ASSESSMENT/PLAN: 1. Wellness examination - ICD9: V70.0, ICD10: Z00.00 (primary diagnosis) - Recommended regular aerobic exercise. - Discussed need and benefit for weight loss. BMI 35.22 kg/(m2) - Check CMP and fasting lipid panel - Follow up for annual exam in one year. - COMP METABOLIC PANEL - LIPID PANEL BASIC 2. RADHA (obstructive sleep apnea) - ICD9: 327.23, ICD10: G47.33 Will get sleep study at [facility]; notify of results - POLYSOMNOGRAM (PSG)/HOME SLEEP APNEA TESTING (HSAT) 3. Choking, initial encounter - ICD9: 933.1, ICD10: T17.308A Monitor for now; may need ENT eval Follow up tonja Ponce MD CNOV Observed: 09/18/2017 Status: COMPLETED Source: [place] 11:40 AM [facility] REPOSITORY Office Visit (FAMPWS) VICENTE YOUNG ([id number]) 1970 M Date Time Provider Department 09/18/17 11:40 AM NAVI PONCE During your visit today, we recorded the following information about you: Pulse Respiration Blood pressure Weight 84/minute 16/minute 136/82 109.8 kg Height 1.765 m Navi Ponce MD 09/18/2017 1:56 PM Signed Chief Complaint Patient presents with: Physical HPI Vicente Young is a 47 year old male who presents here today for physical. Brought in by his for routine check. Concerned about lipids, weight; TG elevated on last labs in 2012. Sleep apnea; reports heavy snoring, observed apnea, daytime sleepiness, obesity with BMI 35. Reports occ choking with eating, happens about once/week; will cough and sneeze. He thinks it happens if he eats too fast. Remains active in farming. Past medical history, appointments, medications, allergies reviewed. Previous Medical History PAST MEDICAL HISTORY Diagnosis Date - PMH - PAST MEDICAL HISTORY OF 04/2007 Fracture right fibula Previous Surgical History PAST SURGICAL HISTORY Procedure Laterality Date - APPENDECTOMY 1990s Family History FAMILY HISTORY Problem Relation Age of Onset - Cancer Father 65 Prostate - Cancer Mother Basal cell face - Arthritis Mother Rheumatoid - Arthritis Father Osteoarthritis, knee replacements Patient Allergies ALLERGIES No Known Allergies Current Medications No current outpatient prescriptions on file prior to visit. No current facility-administered medications on file prior to visit. Social History Social History Marital status: Single Spouse name: Years of education: Number of children: Social History Main Topics Smoking status: Never Smoker Smokeless status: Never Used Alcohol use: No Drug use: No EXAM: BP 136/82 (BP Site: Right Arm, BP Position: Sitting, BP Cuff Size: Regular Adult) Pulse 84 Resp 16 Ht 176.5 cm (5' 9.5ANDquot;) Wt 109.8 kg (242 lb) BMI 35.22 kg/m2 General Appearance: Well appearing, alert, in no acute distress, well-hydrated, well nourished., Obese. Oropharynx: Lips, mucosa, and tongue normal, teeth and gums normal, oropharynx normal. Neck: Supple, no adenopathy; thyroid symmetric, normal size, no bruits. Lungs: Lungs clear to auscultation. No wheezing, rhonchi, rales. Heart: RRR without murmur, gallop, or rubs. No ectopy. Abdomen: Normal abdominal exam, Abdomen soft, non-tender. Bowel sounds normal. No masses, organomegaly. Health Maintenance List DIABETES SCREEN due on 11/17/2015 INFLUENZA(1) due on 02/27/2017 LIPID SCREEN due on 11/16/2017 TETANUS due on 11/16/2022 Data reviewed None ASSESSMENT/PLAN: 1. Wellness examination - ICD9: V70.0, ICD10: Z00.00 (primary diagnosis) - Recommended regular aerobic exercise. - Discussed need and benefit for weight loss. BMI 35.22 kg/(m2) - Check CMP and fasting lipid panel - Follow up for annual exam in one year. - COMP METABOLIC PANEL - LIPID PANEL BASIC 2. RADHA (obstructive sleep apnea) - ICD9: 327.23, ICD10: G47.33 Will get sleep study at [facility]; notify of results - POLYSOMNOGRAM (PSG)/HOME SLEEP APNEA TESTING (HSAT) 3. Choking, initial encounter - ICD9: 933.1, ICD10: T17.308A Monitor for now; may need ENT eval Follow up prn Navi Ponce MD Referring Provider: SELF [200] Allergies As of Date: 09/18/2017 (No Known Allergies) Date Reviewed: 09/18/2017 Reviewed by: Stephanie Smith LPN - Fully Assessed Reason for Visit: Physical [83] Primary Visit Diagnosis:Wellness examination [Z00.00] Other Visit Diagnoses:RADHA (obstructive sleep apnea) [G47.33] Choking, initial encounter [T17.308A] Order(s):COMP METABOLIC PANEL [SQCMP] Order #: [id number] FUTURE LIPID PANEL BASIC [SQLIPB] Order #: [id number] FUTURE POLYSOMNOGRAM (PSG)/HOME SLEEP APNEA TESTING (HSAT) [[id number]] Order #: [id number] FUTURE Problem List As Of Date 09/18/2017 Noted Resolved SPRAIN OF ANKLE NOS [S93.409A] INVALID FOR* Disposition: Return if symptoms worsen or fail to improve. Follow-up and Disposition History Recorded Encounter Status:Closed by NAVI PONCE MD on 09/18/17 ALLERGIES ALLERGIES DATE TYPE / CODE NAME / CODE REACTION SEVERITY SOURCE 04/22/2014 Drug No Known Unknown [facility] Allergy/416 Allergies/A33713 Hospital 775924(SNOM 0388(RXNORM) Repository ED CT) Drug NO KNOWN [facility] Class/63765 ALLERGIES Main [place] 1003(SNOMED Repository CT) ENCOUNTERS ENCOUNTERS ADMIT/DISCHARGE ACCOUNT ADMITTING ENCOUNTER LOCATION SOURCE NUMBER CLASS 07/19/2018 [id number] [facility] ing:HPRAD Repository 07/19/2018/07/19/19 [id number] [facility] [place] [facility] Repository 04/10/2018/04/12/20 [id number] Ambulatory [address] Repository 11/18/2017/11/20/19 [id number] Ambulatory [address] Repository 10/08/2017 [id number] [facility] ing:SL Repository 09/22/2017/09/23/19 [id number] Ambulatory [address] Repository 09/18/2017/09/22/19 [id number] Ambulatory [address] Repository PAYERS PAYERS ENCOUNTER GUARANTOR PAYER SUBSCRIBER SOURCE 07/19/2018 VICENTE Mcgee [id number] [facility] Number: [id number] [id number] Repository [address]Ght: (330) Date:2018-07-19 O [phone] () [address]ATTN: [place] [address]GV: 07/19/2018 Secondary NOT GIVENUNK Arely Insurance:SELF PAY [facility] Number: Effective Repository Date:2018-07-19 07/19/2018 VICENTE Sawant Primary VICENTE Mcgee [id number] [facility] Number: [id number], [place] [id number] Repository [address]Pgn: (330) Date:2018-07-01P O [phone] (HP) [address]ATTN: [place] [address]US: 07/19/2018 Secondary NOT GIVENUNK Arely Insurance:SELF PAY [facility] Number: Effective Repository Date:2018-07-16 10/08/2017 VICENTE E Primary Vicente E Arely [id number] Insurance:CARESOURCEP SiglerDOB: [facility] Number: [id number], [place] [id number] Repository [address]Yml: Date:2017-09-18P O [phone] [address]ATTN: CLAIMS -4 (HP) [place] [address]SU: 10/08/2017 Secondary NOT GIVENUNK Arely Insurance:SELF PAY [facility] Number: Effective Repository Date:2017-09-18
== END ==
PROVIDERS: Family Provider Family Medicine; PCP Family Medicine; Referring Provider Physician Assistant; Visit Provider Physician Assistant
DX: M25.562 Pain in left knee (principal)
CPT/HCPCS: 73564

== ENCOUNTER → 2019-08-08 20:00 | Outpatient (CLI) | payer MEDICAID, SELFPAY | PROVIDERS: PCP Family Medicine; Referring Provider Family Medicine; Visit Provider Family Medicine | DX: G47.33 Obstructive sleep apnea (adult) (pediatric) (principal); R06.83 Snoring | CPT/HCPCS: 95811 ==

== ENCOUNTER → 2020-02-09 13:56 | Outpatient (CLI) | payer MEDICAID, SELFPAY ==
--- NOTE | 2020-02-09 13:59 | CT_ITS ---
STUDY: CT BRAIN AND SINUSES WITHOUT CONTRAST REASON FOR EXAM: Male, 49 years old. CHRONIC SINUSITIS RADIATION DOSAGE (If Supplied By Facility): CTDIvol = ( 33.06 ) mGy, DLP = ( 829.72 ) mGycm TECHNIQUE: Transaxial CT imaging of the brain was performed without administration of contrast. Individualized dose optimization techniques were used for this CT. COMPARISON: No relevant priors. 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 This extends into the right side of the clivus to the level of the almonte magnum. A neoplastic process of the clivus should be ruled out. Fibrous dysplasia should be in the differential diagnosis as well. Normal soft tissue structures. Normal calvarium. Normal size ventricles and extra-axial spaces for the patient''s age. Normal white matter tracts of the cerebral hemispheres. Normal basal ganglia and thalami. Normal brainstem. Normal cerebellum. There is no intracranial hemorrhage. There are no findings of an acute ischemic infarction. CT SINUSES Post Surgical Changes: None. Frontal Sinus and Recess: Normal aeration without mucosal inflammatory disease. Ethmoidal Sinuses: Minimal mucosal thickening of the ethmoid sinuses. Maxillary Sinuses: There is almost complete opacification of the right maxillary sinus. Ostiomeatal Complex: Mucosal obliteration of the right maxillary infundibuli. Sphenoid Sinus: Normal aeration without mucosal inflammatory disease. Sphenoethmoidal Recess: Clear. Nasal Turbinate (Right): Middle Turbinate (Right): Normal. Middle Turbinate (Left): Normal. Inferior Turbinate (Right): Normal. Inferior Turbinate (Left): Hypertrophy of the left inferior nasal turbinate. Nasal Septum: Midline. Nasal Airway: Clear. Cribiform Plate / Anterior Cranial Fossa: Normal. Orbits: Normal. 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 A neoplastic processes of the clivus should be ruled out. Another differential to consider should include fibrous dysplasia. Almost complete opacification of the right maxillary sinus. Minimal mucosal thickening of the ethmoid sinuses. Electronically Signed: Martinez Beltran, at 14:52 EDT , Service support ,
== END ==
PROVIDERS: PCP Family Medicine; Referring Provider Otolaryngology; Visit Provider Otolaryngology
DX: J32.9 Chronic sinusitis, unspecified (principal)
CPT/HCPCS: 70486